=== PATIENT | male | born 1985 | race Caucasian/White ===

== ENCOUNTER → 2020-04-12 | Outpatient (CLI) | payer OTHER | LOC: M.ULTRA 11:00 | PROVIDERS: ATTEND Family Medicine | DX: K76.0 Fatty (change of) liver, not elsewhere classified (principal); R74.8 Abnormal levels of other serum enzymes ==

== ENCOUNTER 2020-11-20 12:38 | Emergency (ER) | payer OTHER ==
[~2020-11-20] VITALS: Ht 180.3 cm; Wt 111.6 kg
[2020-11-20] MEDS ORDERED: PREDNISONE 10 M10 MG PO (12:54)
[2020-11-20] MEDS ORDERED: MELOXICAM7.5 MG PO (12:54)
[2020-11-20] MEDS ORDERED: ALLOPURINOL 10100 M3 PO (12:54)
[2020-11-20] MEDS ORDERED: METHOCARBAMOL500 M2 PO (12:54)
[2020-11-20] MEDS ORDERED: VITAMIN C500 M2 PO (12:55)
[2020-11-20] MEDS ORDERED: VALACYCLOVIR500 MG PO (12:55)
[2020-11-20] MEDS ORDERED: VITAMIN D310 MC1 PO (12:55)
[2020-11-20] MEDS ORDERED: ZINC30 MG PO (12:55)
[2020-11-20] MEDS ORDERED: HYDROCODON-ACE1 EAC7 PO (13:06)
[2020-11-20] MEDS ORDERED: FLEXERIL PO (13:06)
[2020-11-20] MEDS ORDERED: PREDNISONE 20 M20 M1 PO (13:06)
[2020-11-20 15:34] VITALS: BP 140/80
== END 2020-11-20 15:34 | disposition home or self-care (01) ==
LOC: M.ERS 12:38
DX: M54.16 Radiculopathy, lumbar region (principal); Z79.899 Other long term (current) drug therapy; M10.9 Gout, unspecified